=== PATIENT | female | born 1970 | race Caucasian/White ===

== ENCOUNTER 2022-09-21 11:11 | Outpatient (CLI) | payer OTHER | END 2022-09-21 11:12 | disposition home or self-care (01) | LOC: MRI 11:11 | PROVIDERS: ATTEND Family Medicine | DX: M25.561 Pain in right knee (principal); S83.241A Other tear of medial meniscus, current injury, right knee, initial encounter; M22.2X1 Patellofemoral disorders, right knee; M25.461 Effusion, right knee ==